=== PATIENT | female | born 1970 | race American Indian/Alaskan Native ===

== ENCOUNTER 2022-02-06 01:48 | Emergency (ER) | payer MEDICAID, OTHER ==
[2022-02-06] MEDS ORDERED: predniSONE 20 MG Tab PO ONE (01:49)
[2022-02-06] MEDS ORDERED: Albuterol/Ipratropium 3.0-0.5 MG/3 ML Neb Soln INH ONE (01:49)
[2022-02-06 02:28] VITALS: BP 131/69; PULSE 112
[2022-02-06 03:05] LABS: CORONAVIRUS COVID-19 NAA NEGATIVE (NEGATIVE)
[2022-02-06] MEDS ORDERED: Albuterol/Ipratropium 3.0-0.5 MG/3 ML Neb Soln NEB ONE (03:25)
[2022-02-06] MEDS ORDERED: methylPREDNISolone Sodium Succinate 125 MG/2 ML SDV IM ONE (03:25)
[2022-02-06] MEDS ORDERED: predniSONE 20 MG Tab ONE (05:07)
[2022-02-06] MEDS ORDERED: Albuterol/Ipratropium 3.0-0.5 MG/3 ML Neb Soln ONE (05:08)
== END 2022-02-06 05:37 | disposition home or self-care (01) ==
LOC: DL.ED 01:48
DX: J45.901 Unspecified asthma with (acute) exacerbation (principal); K21.9 Gastro-esophageal reflux disease without esophagitis; E66.9 Obesity, unspecified; Z68.34 Body mass index [BMI] 34.0-34.9, adult; Z72.0 Tobacco use; Z88.1 Allergy status to other antibiotic agents; Z79.899 Other long term (current) drug therapy; Z20.822 Contact with and (suspected) exposure to COVID-19
CPT/HCPCS: 0240U; 94640; 96372; 99283; J2930; J7512; J7620-GY

== ENCOUNTER 2022-03-03 04:44 | Emergency (ER) | payer MEDICAID ==
[2022-03-03 05:06] VITALS: BP 121/56; PULSE 99
[2022-03-03] MEDS: Benzonatate 100 MG Cap PO ONE (05:20)
[2022-03-03] MEDS: Albuterol/Ipratropium 3.0-0.5 MG/3 ML Neb Soln NEB ONE (05:20)
[2022-03-03 05:24] LABS: CORONAVIRUS COVID-19 NAA NEGATIVE (NEGATIVE); RESPIRATORY SYNCYTIAL VIR NAA NEGATIVE (NEGATIVE)
== END 2022-03-03 06:52 | disposition home or self-care (01) ==
LOC: DL.ED 04:44
DX: J45.41 Moderate persistent asthma with (acute) exacerbation (principal); E66.9 Obesity, unspecified; Z68.35 Body mass index [BMI] 35.0-35.9, adult; Z88.1 Allergy status to other antibiotic agents; Z79.899 Other long term (current) drug therapy; Z90.49 Acquired absence of other specified parts of digestive tract; Z20.822 Contact with and (suspected) exposure to COVID-19
CPT/HCPCS: 0241U; 99284; A9270; J7620-GY

== ENCOUNTER 2022-10-22 16:53 | Emergency (ER) | payer MEDICAID ==
[2022-10-22] MEDS ORDERED: Bacitracin Oint 1 GM U/D Packet TOP ONE (17:12)
[2022-10-22 17:55] VITALS: BP 127/94; PULSE 89
== END 2022-10-22 17:38 | disposition home or self-care (01) ==
LOC: DL.ED 16:53
DX: S06.0X1A Concussion with loss of consciousness of 30 minutes or less, initial encounter (principal); S01.01XA Laceration without foreign body of scalp, initial encounter; J45.909 Unspecified asthma, uncomplicated; K21.9 Gastro-esophageal reflux disease without esophagitis; E66.9 Obesity, unspecified; Z68.30 Body mass index [BMI] 30.0-30.9, adult; Z88.1 Allergy status to other antibiotic agents; Z79.899 Other long term (current) drug therapy; Y04.2XXA Assault by strike against or bumped into by another person, initial encounter
CPT/HCPCS: 99283; 99284; A9270-GY

== ENCOUNTER 2022-10-29 09:01 | Emergency (ER) | payer MEDICAID ==
[2022-10-29 09:18] LABS: BASOPHILS PERCENT AUTO 0.9 % (0.0-1.0); EOSINOPHILS PERCENT AUTO 5.1 % (1.0-3.0); HEMATOCRIT 42.5 % (37.0-47.0); HEMOGLOBIN 13.7 g/dL (12.0-16.0); LYMPHOCYTES PERCENT AUTO 49.9 % (20.5-50.1); MEAN CORPUSCULAR HEMOGLOBIN 33.2 pg (27.0-34.0); MEAN CORPUSCULAR HGB CONC 32.2 g/dL (33.0-35.0); MEAN CORPUSCULAR VOLUME 102.9 fL (80-100); MONOCYTES PERCENT AUTO 10.8 % (2-8); NEUTROPHILS PERCENT AUTO 33.3 % (42.2-75.2); PLATELET COUNT,PLT 252 10^3/uL (150-450); RED BLOOD CELL COUNT 4.13 10^6/uL (4.2-5.4); WHITE BLOOD CELL COUNT,WBC 6.9 10^3/uL (5.0-10.0)
[2022-10-29 09:22] LABS: APPEARANCE,URINE CLEAR (CLEAR); BILIRUBIN,URINE NEGATIVE (NEGATIVE); COLOR,URINE YELLOW (YELLOW); GLUCOSE,URINE NEGATIVE (NEGATIVE); KETONES,URINE NEGATIVE (NEGATIVE); LEUKOCYTE ESTERASE,URINE NEGATIVE (NEGATIVE); NITRITE,URINE NEGATIVE (NEGATIVE); OCCULT BLOOD,URINE TRACE-INTACT (NEGATIVE); PROTEIN,URINE NEGATIVE (NEGATIVE)
[2022-10-29 09:30] LABS: AMORPHOUS SEDIMENT,URINE RARE /HPF (NOT SEEN); BACTERIA,URINE RARE /HPF (0-FEW/HPF); EPITHELIAL CELLS,URINE FEW /HPF (NOT SEEN); MUCUS,URINE MODERATE /LPF (NOT SEEN); RBC,URINE 0-5 /HPF (0-5); WBC,URINE 0-5 /HPF (0-5/HPF)
[2022-10-29 09:37] LABS: ACETAMINOPHEN 19 ug/mL (10-30 (Therapeutic)); ALANINE AMINOTRANSFERASE,ALT 241 U/L (14-59); ALBUMIN 3.1 g/dL (3.4-5.0); ALKALINE PHOSPHATASE 154 U/L (46-116); ANION GAP 14.3 mEq/L (7-13); ASPARTATE AMNIOTRANSFERASE,AST 401 U/L (15-37); BILIRUBIN TOTAL 0.3 mg/dL (0.2-1.0); BLOOD UREA NITROGEN,BUN 8 mg/dL (7-18); BUN/CREATININE RATIO 11.1 (No establ ref range); CARBON DIOXIDE,CO2 26 mmol/L (21-32); CHLORIDE,CL 109 mmol/L (98-107); CREATININE 0.72 mg/dL (0.55-1.02); ETHANOL BLOOD MEDICAL 177 mg/dL (0); GLUCOSE RANDOM 122 mg/dL (70-99); POTASSIUM,K 3.3 mmol/L (3.5-5.1); PROTEIN TOTAL,TP 7.5 g/dL (6.4-8.2); SODIUM,NA 146 mmol/L (136-145)
[2022-10-29 09:38] LABS: ESTIMATED GFR 100 mL/min (>=60)
[2022-10-29 09:43] LABS: LACTIC ACID 1.8 mmol/L (0.4-2.0)
[2022-10-29 09:44] LABS: METHAMPHETAMINES,URINE POSITIVE (NEGATIVE)
[2022-10-29 09:45] LABS: AMPHETAMINES,URINE POSITIVE (NEGATIVE); BARBITURATES,URINE NEGATIVE (NEGATIVE); BENZODIAZEPINE,URINE NEGATIVE (NEGATIVE); MDMA (ECSTASY), URINE NEGATIVE (NEGATIVE); METHADONE,URINE POSITIVE (NEGATIVE); OPIATES,URINE NEGATIVE (NEGATIVE); OXYCODONE,URINE NEGATIVE (NEGATIVE); PHENCYCLIDINE,URINE NEGATIVE (NEGATIVE); TCA,URINE POSITIVE (NEGATIVE)
[2022-10-29 12:48] LABS: A/G RATIO 0.74; ALBUMIN 3.1 g/dL (3.4-5.0); ANION GAP 15.6 mEq/L (7-13); BILIRUBIN TOTAL 0.3 mg/dL (0.2-1.0); BUN/CREATININE RATIO 10.3 (No establ ref range); CALCIUM 7.9 mg/dL (8.5-10.1); CREATININE 0.68 mg/dL (0.55-1.02); EST CRCL DRUG DOSING (CG) 86.09 mL/min; POTASSIUM,K 3.6 mmol/L (3.5-5.1); PROTEIN TOTAL,TP 7.3 g/dL (6.4-8.2)
== END 2022-10-29 15:22 | disposition home or self-care (01) ==
LOC: DL.ED 09:01
DX: T50.991A Poisoning by other drugs, medicaments and biological substances, accidental (unintentional), initial encounter (principal); F32.A Depression, unspecified; F10.10 Alcohol abuse, uncomplicated; Y90.0 Blood alcohol level of less than 20 mg/100 ml
CPT/HCPCS: 36415; 80053; 80143; 80179; 80305-QW; 80307; 81001; 82550; 82947; 83605; 83735; 85025; 93005; 99285

== ENCOUNTER 2023-01-27 10:50 | Inpatient (IN) | payer MEDICAID ==
[2023-01-27 11:33] LABS: BASOPHILS PERCENT AUTO 0.2 % (0.0-1.0); EOSINOPHILS PERCENT AUTO 0.9 % (1.0-3.0); HEMOGLOBIN 12.8 g/dL (12.0-16.0); LYMPHOCYTES PERCENT AUTO 18.3 % (20.5-50.1); MEAN CORPUSCULAR HEMOGLOBIN 34.3 pg (27.0-34.0); MEAN CORPUSCULAR HGB CONC 34.6 g/dL (33.0-35.0); MEAN CORPUSCULAR VOLUME 99.2 fL (80-100); MONOCYTES PERCENT AUTO 11.3 % (2-8); NEUTROPHILS PERCENT AUTO 69.3 % (42.2-75.2); PLATELET COUNT,PLT 169 10^3/uL (150-450); RED BLOOD CELL COUNT 3.73 10^6/uL (4.2-5.4); WHITE BLOOD CELL COUNT,WBC 16.3 10^3/uL (5.0-10.0)
[2023-01-27] MEDS ORDERED: Sodium Chloride 0.9% 1,000 ML IV ONE (11:33)
[2023-01-27 11:42] LABS: ALANINE AMINOTRANSFERASE,ALT 56 U/L (14-59); ALBUMIN 2.5 g/dL (3.4-5.0); ALKALINE PHOSPHATASE 132 U/L (46-116); AMYLASE 40 U/L (25-115); ANION GAP 12.4 mEq/L (7-13); ASPARTATE AMNIOTRANSFERASE,AST 83 U/L (15-37); BILIRUBIN TOTAL 0.9 mg/dL (0.2-1.0); BLOOD UREA NITROGEN,BUN 15 mg/dL (7-18); BUN/CREATININE RATIO 14.4 (No establ ref range); CALCIUM 8.1 mg/dL (8.5-10.1); CARBON DIOXIDE,CO2 23 mmol/L (21-32); CHLORIDE,CL 105 mmol/L (98-107); CREATININE 1.04 mg/dL (0.55-1.02); EST CRCL DRUG DOSING (CG) 54.02 mL/min; GLUCOSE RANDOM 99 mg/dL (70-99); LIPASE 31 U/L (16-77); POTASSIUM,K 3.4 mmol/L (3.5-5.1); PROTEIN TOTAL,TP 7.5 g/dL (6.4-8.2); SODIUM,NA 137 mmol/L (136-145)
[2023-01-27] MEDS ORDERED: Sodium Chloride 0.9% 1,000 ML IV SCH (11:45)
[2023-01-27 11:46] LABS: ESTIMATED GFR 64 mL/min (>=60); ETHANOL BLOOD MEDICAL < 3 mg/dL (0)
[2023-01-27] MEDS ORDERED: Iopamidol 612 MG/ML 100 ML Bottle IVPUSH ONE (11:50)
[2023-01-27] MEDS: Sodium Chloride 0.9% 10 ML Syringe FLUSH PRN (11:53)
[2023-01-27 12:05] LABS: LACTIC ACID 1.1 mmol/L (0.4-2.0)
[2023-01-27] MEDS ORDERED: Ketorolac 30 MG/ML SDV IVPUSH ONE (12:10)
[2023-01-27 12:13] LABS: CORONAVIRUS COVID-19 NAA NEGATIVE (NEGATIVE); INFLUENZA A NAA NEGATIVE (NEGATIVE); INFLUENZA B NAA NEGATIVE (NEGATIVE); RESPIRATORY SYNCYTIAL VIR NAA NEGATIVE (NEGATIVE)
[2023-01-27 12:40] LABS: PROTHROMBIN TIME 10.3 SEC (9.0-12.0); PTT,PARTIAL THROMBOPLSTIN TIME 27.4 SEC (22.0-34.0)
[2023-01-27] MEDS ORDERED: Piperacillin/Tazobactam 3.375 GM in Sodium Chloride 0.9% 100 ML IV ONE (12:49)
[2023-01-27 12:57] LABS: APPEARANCE,URINE TURBID (CLEAR); BILIRUBIN,URINE NEGATIVE (NEGATIVE); COLOR,URINE DARK YELLOW (YELLOW); GLUCOSE,URINE NEGATIVE (NEGATIVE); KETONES,URINE NEGATIVE (NEGATIVE); LEUKOCYTE ESTERASE,URINE SMALL (NEGATIVE); NITRITE,URINE NEGATIVE (NEGATIVE); OCCULT BLOOD,URINE SMALL (NEGATIVE); PROTEIN,URINE 100 (NEGATIVE)
[2023-01-27] MEDS ORDERED: Vancomycin 2 GM in Sodium Chloride 0.9% 500 ML IV ONE (13:00)
[2023-01-27 13:01] LABS: AMPHETAMINES,URINE POSITIVE (NEGATIVE); BARBITURATES,URINE NEGATIVE (NEGATIVE); BENZODIAZEPINE,URINE NEGATIVE (NEGATIVE); MDMA (ECSTASY), URINE NEGATIVE (NEGATIVE); METHADONE,URINE NEGATIVE (NEGATIVE); METHAMPHETAMINES,URINE POSITIVE (NEGATIVE); OPIATES,URINE NEGATIVE (NEGATIVE); OXYCODONE,URINE NEGATIVE (NEGATIVE); PHENCYCLIDINE,URINE NEGATIVE (NEGATIVE); TCA,URINE NEGATIVE (NEGATIVE)
[2023-01-27 13:08] LABS: BACTERIA,URINE MODERATE /HPF (0-FEW/HPF); EPITHELIAL CELLS,URINE MANY /HPF (NOT SEEN); MUCUS,URINE FEW /LPF (NOT SEEN)
[2023-01-27] MEDS ORDERED: Ondansetron 4 MG/2 ML SDV IVPUSH PRN (14:04)
[2023-01-27] MEDS ORDERED: HYDROmorphone 0.5 MG/0.5 ML Syringe IVPUSH PRN (14:04)
[2023-01-27] MEDS ORDERED: Polyethylene Glycol 3350 Powder 17 GM Packet PO PRN (14:04)
[2023-01-27] MEDS ORDERED: Albuterol/Ipratropium 3.0-0.5 MG/3 ML Neb Soln NEB PRN (14:04)
[2023-01-27] MEDS ORDERED: Magnesium Hydroxide 400 MG/5 ML Susp 30 ML Cup PO PRN (14:04)
[2023-01-27] MEDS ORDERED: Sennosides/Docusate Sodium 50-8.6 MG Tab PO PRN (14:04)
[2023-01-27] MEDS ORDERED: Acetaminophen/Butalbital/Caffeine 325-50-40 MG Tab PO ONE (14:39)
[2023-01-27] MEDS ORDERED: Nicotine 21 MG/24 Hr Patch TRDERM ONE (14:41)
[2023-01-27] MEDS: Sodium Chloride 0.9% 1,000 ML IV SCH ×2 (15:09→22:05)
[2023-01-27] MEDS ORDERED: Glucagon,Human Recombinant 1 MG Vial IM PRN (15:11)
[2023-01-27] MEDS ORDERED: 50% Dextrose in Water 50 ML Syringe IVPUSH PRN (15:11)
[2023-01-27] MEDS ORDERED: Midodrine 5 MG Tab PO PRN (15:11)
[2023-01-27] MEDS ORDERED: Ondansetron 4 MG Tab.DIS PO PRN (16:11)
[2023-01-27] MEDS ORDERED: diphenhydrAMINE 50 MG/ML SDV IVPUSH ONE (16:14)
[2023-01-27] MEDS ORDERED: hydrOXYzine HCl 25 MG Tab PO PRN (16:31)
[2023-01-27] MEDS: Piperacillin/Tazobactam 3.375 GM in Sodium Chloride 0.9% 100 ML IV SCH (16:59)
[2023-01-27] MEDS ORDERED: Potassium Chloride 10 MEQ Tab.ER PO ONE (17:00)
[2023-01-27] MEDS: Insulin Lispro 100 Units/ML 3 ML Vial SUBCUT SCH (17:02)
[2023-01-27] MEDS ORDERED: Metoclopramide 10 MG/2 ML SDV IVPUSH ONE (20:52)
[2023-01-27] MEDS ORDERED: Ketorolac 30 MG/ML SDV IM ONE (20:52)
[2023-01-27] MEDS ORDERED: SUMAtriptan 6 MG/0.5 ML SDV SUBCUT ONE (20:54)
[2023-01-27] MEDS ORDERED: LORazepam 2 MG/ML SDV IVPUSH ONE ×2 (20:54)
[2023-01-27] MEDS ORDERED: Flumazenil 0.1 MG/ML 5 ML MDV IVPUSH PRN (20:54)
[2023-01-27] MEDS ORDERED: Non-Formulary Medication 1 Each (Prazosin Hcl [Prazosin] 1 MG Capsule) PO SCH (21:00)
[2023-01-27] MEDS ORDERED: Non-Formulary Medication 1 Each (Fluticasone Propion/Salmeterol [Fluticasone-Salmeterol 25 INH SCH (21:00)
[2023-01-27] MEDS ORDERED: Lactated Ringers 1,000 ML IV ONE (21:03)
[2023-01-27] MEDS: QUEtiapine 25 MG Tab PO SCH (21:53)
[2023-01-27] MEDS: Montelukast 10 MG Tab PO SCH (21:53)
[2023-01-27] MEDS: Saccharomyces Boulardii (Probiotic) 250 MG Cap PO SCH (21:53)
[2023-01-27] MEDS: Formoterol/Mometasone 200-5 MCG 8.8 GM Inhaler IH SCH (21:59)
[2023-01-27] MEDS: Fluticasone NASAL Spray 16 GM Bottle NASBOTH SCH (21:59)
[2023-01-28] MEDS: Piperacillin/Tazobactam 3.375 GM in Sodium Chloride 0.9% 100 ML IV SCH ×4 (00:10→17:04)
[2023-01-28] MEDS ORDERED: Sodium Chloride 0.9% 1,000 ML IV SCH (01:15)
[2023-01-28] MEDS: Pantoprazole 40 MG Tab.CR PO SCH (05:21)
[2023-01-28 06:15] LABS: BASOPHILS PERCENT AUTO 0.3 % (0.0-1.0); EOSINOPHILS PERCENT AUTO 1.5 % (1.0-3.0); HEMATOCRIT 33.7 % (37.0-47.0); MEAN CORPUSCULAR HEMOGLOBIN 33.2 pg (27.0-34.0); MEAN CORPUSCULAR HGB CONC 32.6 g/dL (33.0-35.0); MEAN CORPUSCULAR VOLUME 101.8 fL (80-100); MONOCYTES PERCENT AUTO 11.7 % (2-8); NEUTROPHILS PERCENT AUTO 63.5 % (42.2-75.2); PLATELET COUNT,PLT 149 10^3/uL (150-450); RED BLOOD CELL COUNT 3.31 10^6/uL (4.2-5.4); WHITE BLOOD CELL COUNT,WBC 10.2 10^3/uL (5.0-10.0)
[2023-01-28] MEDS: Formoterol/Mometasone 200-5 MCG 8.8 GM Inhaler IH SCH ×4 (06:16→17:29)
[2023-01-28 06:33] LABS: A/G RATIO 0.48; BILIRUBIN TOTAL 0.7 mg/dL (0.2-1.0); BUN/CREATININE RATIO 14.8 (No establ ref range); C-REACTIVE PROTEIN 11.05 ng/dL (<=0.50); CALCIUM 7.3 mg/dL (8.5-10.1); CREATININE 0.88 mg/dL (0.55-1.02); EST CRCL DRUG DOSING (CG) 63.84 mL/min; MAGNESIUM 1.7 mg/dL (1.8-2.4); PROTEIN TOTAL,TP 6.2 g/dL (6.4-8.2)
[2023-01-28] MEDS: Thiamine 100 MG Tab PO SCH (08:14)
[2023-01-28] MEDS: buPROPion 150 MG Tab.SR PO SCH (08:14)
[2023-01-28] MEDS: Saccharomyces Boulardii (Probiotic) 250 MG Cap PO SCH ×2 (08:14→20:09)
[2023-01-28] MEDS: Nicotine 21 MG/24 Hr Patch TRDERM SCH (08:17)
[2023-01-28] MEDS ORDERED: Magnesium Sulfate/Water 2 GM in Premix Bag 1 BAG IV ONE (08:23)
[2023-01-28] MEDS: Acetaminophen 325 MG Tab PO PRN ×2 (08:29→20:07)
[2023-01-28] MEDS: LORazepam 2 MG/ML SDV IV PRN ×3 (08:30→17:14)
[2023-01-28] MEDS: Insulin Lispro 100 Units/ML 3 ML Vial SUBCUT SCH ×3 (08:35→17:17)
[2023-01-28] MEDS: Fluticasone NASAL Spray 16 GM Bottle NASBOTH SCH ×2 (10:57→20:11)
[2023-01-28] MEDS: Acetaminophen/Butalbital/Caffeine 325-50-40 MG Tab PO PRN (17:09)
[2023-01-28] MEDS: Montelukast 10 MG Tab PO SCH (20:09)
[2023-01-28] MEDS: QUEtiapine 25 MG Tab PO SCH (20:09)
[2023-01-28] MEDS: Sodium Chloride 0.9% 10 ML Syringe FLUSH PRN (20:14)
[2023-01-29] MEDS: Sodium Chloride 0.9% 10 ML Syringe FLUSH PRN ×4 (00:15→21:28)
[2023-01-29] MEDS: Piperacillin/Tazobactam 3.375 GM in Sodium Chloride 0.9% 100 ML IV SCH ×5 (00:16→23:19)
[2023-01-29] MEDS: Acetaminophen/Butalbital/Caffeine 325-50-40 MG Tab PO PRN (03:06)
[2023-01-29] MEDS: Pantoprazole 40 MG Tab.CR PO SCH (05:26)
[2023-01-29] MEDS: Formoterol/Mometasone 200-5 MCG 8.8 GM Inhaler IH SCH ×2 (05:33→17:11)
[2023-01-29] MEDS: Acetaminophen/oxyCODONE 325-5 MG Tab PO PRN (05:41)
[2023-01-29 06:37] LABS: BASOPHILS PERCENT AUTO 0.4 % (0.0-1.0); EOSINOPHILS PERCENT AUTO 2.8 % (1.0-3.0); HEMATOCRIT 33.9 % (37.0-47.0); LYMPHOCYTES PERCENT AUTO 28.8 % (20.5-50.1); MEAN CORPUSCULAR HEMOGLOBIN 32.9 pg (27.0-34.0); MEAN CORPUSCULAR HGB CONC 32.4 g/dL (33.0-35.0); MEAN CORPUSCULAR VOLUME 101.5 fL (80-100); MONOCYTES PERCENT AUTO 12.7 % (2-8); NEUTROPHILS PERCENT AUTO 55.3 % (42.2-75.2); PLATELET COUNT,PLT 190 10^3/uL (150-450); RED BLOOD CELL COUNT 3.34 10^6/uL (4.2-5.4); WHITE BLOOD CELL COUNT,WBC 9.4 10^3/uL (5.0-10.0)
[2023-01-29 08:00] LABS: ALBUMIN 2.2 g/dL (3.4-5.0); ANION GAP 13.5 mEq/L (7-13); BILIRUBIN TOTAL 0.6 mg/dL (0.2-1.0); BUN/CREATININE RATIO 8.5 (No establ ref range); C-REACTIVE PROTEIN 6.65 ng/dL (<=0.50); CALCIUM 7.9 mg/dL (8.5-10.1); CREATININE 0.94 mg/dL (0.55-1.02); EST CRCL DRUG DOSING (CG) 59.77 mL/min; POTASSIUM,K 3.5 mmol/L (3.5-5.1); PROTEIN TOTAL,TP 6.4 g/dL (6.4-8.2)
[2023-01-29 08:01] LABS: A/G RATIO 0.52
[2023-01-29] MEDS: Saccharomyces Boulardii (Probiotic) 250 MG Cap PO SCH ×2 (09:13→21:11)
[2023-01-29] MEDS: Thiamine 100 MG Tab PO SCH (09:14)
[2023-01-29] MEDS: LORazepam 2 MG/ML SDV IV PRN ×2 (09:15→10:16)
[2023-01-29] MEDS: buPROPion 150 MG Tab.SR PO SCH (09:15)
[2023-01-29] MEDS: Fluticasone NASAL Spray 16 GM Bottle NASBOTH SCH ×2 (09:17→21:12)
[2023-01-29] MEDS: Insulin Lispro 100 Units/ML 3 ML Vial SUBCUT SCH ×3 (09:18→18:36)
[2023-01-29] MEDS: Nicotine 21 MG/24 Hr Patch TRDERM SCH (09:19)
[2023-01-29] MEDS ORDERED: SUMAtriptan 6 MG/0.5 ML SDV SUBCUT ONE (12:07)
[2023-01-29] MEDS: Acetaminophen 325 MG Tab PO PRN (14:26)
[2023-01-29] MEDS ORDERED: Ibuprofen 400 MG Tab PO PRN (16:39)
[2023-01-29] MEDS: QUEtiapine 25 MG Tab PO SCH (21:11)
[2023-01-29] MEDS: Montelukast 10 MG Tab PO SCH (21:11)
[2023-01-30] MEDS: Acetaminophen/oxyCODONE 325-5 MG Tab PO PRN ×2 (00:14→04:06)
[2023-01-30] MEDS: Sodium Chloride 0.9% 10 ML Syringe FLUSH PRN (05:34)
[2023-01-30] MEDS: Pantoprazole 40 MG Tab.CR PO SCH (05:34)
[2023-01-30] MEDS: Piperacillin/Tazobactam 3.375 GM in Sodium Chloride 0.9% 100 ML IV SCH ×2 (05:34→12:26)
[2023-01-30 06:10] LABS: BASOPHILS PERCENT AUTO 0.8 % (0.0-1.0); EOSINOPHILS PERCENT AUTO 4.8 % (1.0-3.0); HEMATOCRIT 35.6 % (37.0-47.0); HEMOGLOBIN 11.6 g/dL (12.0-16.0); LYMPHOCYTES PERCENT AUTO 29.5 % (20.5-50.1); MEAN CORPUSCULAR HEMOGLOBIN 32.9 pg (27.0-34.0); MEAN CORPUSCULAR HGB CONC 32.6 g/dL (33.0-35.0); MEAN CORPUSCULAR VOLUME 100.8 fL (80-100); MONOCYTES PERCENT AUTO 13.5 % (2-8); NEUTROPHILS PERCENT AUTO 51.4 % (42.2-75.2); PLATELET COUNT,PLT 212 10^3/uL (150-450); RED BLOOD CELL COUNT 3.53 10^6/uL (4.2-5.4); WHITE BLOOD CELL COUNT,WBC 9.2 10^3/uL (5.0-10.0)
[2023-01-30 06:30] LABS: ALBUMIN 2.2 g/dL (3.4-5.0); ANION GAP 11.5 mEq/L (7-13); BILIRUBIN TOTAL 0.4 mg/dL (0.2-1.0); C-REACTIVE PROTEIN 5.19 ng/dL (<=0.50); CALCIUM 8.2 mg/dL (8.5-10.1); CREATININE 0.9 mg/dL (0.55-1.02); EST CRCL DRUG DOSING (CG) 62.42 mL/min; MAGNESIUM 1.8 mg/dL (1.8-2.4); POTASSIUM,K 3.5 mmol/L (3.5-5.1); PROTEIN TOTAL,TP 6.9 g/dL (6.4-8.2)
[2023-01-30] MEDS: Formoterol/Mometasone 200-5 MCG 8.8 GM Inhaler IH SCH (06:31)
[2023-01-30 06:37] LABS: A/G RATIO 0.47
[2023-01-30] MEDS: Insulin Lispro 100 Units/ML 3 ML Vial SUBCUT SCH ×2 (08:22→12:25)
[2023-01-30] MEDS: Thiamine 100 MG Tab PO SCH (08:36)
[2023-01-30] MEDS: buPROPion 150 MG Tab.SR PO SCH (08:36)
[2023-01-30] MEDS: Saccharomyces Boulardii (Probiotic) 250 MG Cap PO SCH (08:36)
[2023-01-30] MEDS: Nicotine 21 MG/24 Hr Patch TRDERM SCH (08:37)
[2023-01-30] MEDS: Fluticasone NASAL Spray 16 GM Bottle NASBOTH SCH (08:50)
[2023-01-30] MEDS ORDERED: FLU (Fluarix Quad) QS2023-24(6MOS UP)/PF 60 MCG/0.5 ML Syringe IM ONE (09:00)
[2023-01-30] MEDS: Acetaminophen 325 MG Tab PO PRN (09:37)
[2023-01-30 12:04] VITALS: BP 115/73; PULSE 83
== END 2023-01-30 12:50 | disposition home or self-care (01) | DRG 872 ==
LOC: DL.ED 10:50 → DL.MS 13:33 → UNDOADMIN 13:33 → DL.ED 13:46 → DL.MS 14:00
PROVIDERS: ADMIT Internal Medicine; ATTEND Internal Medicine
DX: A41.9 Sepsis, unspecified organism (principal); N12 Tubulo-interstitial nephritis, not specified as acute or chronic; N17.9 Acute kidney failure, unspecified; J45.909 Unspecified asthma, uncomplicated; K21.9 Gastro-esophageal reflux disease without esophagitis; E11.9 Type 2 diabetes mellitus without complications; F41.9 Anxiety disorder, unspecified; F32.A Depression, unspecified; E87.6 Hypokalemia; F17.210 Nicotine dependence, cigarettes, uncomplicated; G44.89 Other headache syndrome; E66.9 Obesity, unspecified; G43.909 Migraine, unspecified, not intractable, without status migrainosus; E88.09 Other disorders of plasma-protein metabolism, not elsewhere classified; F19.10 Other psychoactive substance abuse, uncomplicated; Z68.34 Body mass index [BMI] 34.0-34.9, adult; Z79.52 Long term (current) use of systemic steroids; Z79.4 Long term (current) use of insulin; Z79.1 Long term (current) use of non-steroidal anti-inflammatories (NSAID); Z88.1 Allergy status to other antibiotic agents; Z90.89 Acquired absence of other organs; Z90.49 Acquired absence of other specified parts of digestive tract; Z11.52 Encounter for screening for COVID-19
CPT/HCPCS: 0241U; 36415; 70450; 70551; 71045; 74177; 80053; 80202; 80305-QW; 80307; 81001; 82150; 82947; 83605; 83690; 83735; 85025; 85610; 85730; 86140; 87040; 87086; 90686; 94010; 94060; 94667; 94668; 96361; 96365; 96368; 96375; 99285-25; A9270-GY; G0008; J1200; J1815-GY; J1885; J2060; J2543; J2765; J3030; J3370; J3475; J3490; J7030; J7040; J7050; J7120; Q9967

== ENCOUNTER 2023-03-21 20:30 | Emergency (ER) | payer MEDICAID ==
[2023-03-21] MEDS ORDERED: Sodium Chloride 0.9% 1,000 ML IV ONE ×2 (20:39→21:23)
[2023-03-21] MEDS ORDERED: Sodium Chloride 0.9% 10 ML Syringe FLUSH PRN (20:39)
[2023-03-21 20:58] LABS: BASOPHILS PERCENT AUTO 0.5 % (0.0-1.0); EOSINOPHILS PERCENT AUTO 0.1 % (1.0-3.0); HEMATOCRIT 37.8 % (37.0-47.0); HEMOGLOBIN 12.4 g/dL (12.0-16.0); MEAN CORPUSCULAR HEMOGLOBIN 33.2 pg (27.0-34.0); MEAN CORPUSCULAR HGB CONC 32.8 g/dL (33.0-35.0); MEAN CORPUSCULAR VOLUME 101.1 fL (80-100); MONOCYTES PERCENT AUTO 9.7 % (2-8); NEUTROPHILS PERCENT AUTO 74.7 % (42.2-75.2); PLATELET COUNT,PLT 179 10^3/uL (150-450); RED BLOOD CELL COUNT 3.74 10^6/uL (4.2-5.4); WHITE BLOOD CELL COUNT,WBC 7.9 10^3/uL (5.0-10.0)
[2023-03-21 21:22] LABS: LACTIC ACID 1.5 mmol/L (0.4-2.0)
[2023-03-21] MEDS ORDERED: Ondansetron 4 MG/2 ML SDV IVPUSH ONE (21:23)
[2023-03-21] MEDS ORDERED: Ketorolac 30 MG/ML SDV IVPUSH ONE (21:23)
[2023-03-21 21:28] LABS: PROTHROMBIN TIME 10.3 SEC (9.0-12.0); PTT,PARTIAL THROMBOPLSTIN TIME 26.6 SEC (22.0-34.0)
[2023-03-21 21:29] LABS: A/G RATIO 0.67; ALANINE AMINOTRANSFERASE,ALT 340 U/L (14-59); ALBUMIN 3.1 g/dL (3.4-5.0); ALKALINE PHOSPHATASE 144 U/L (46-116); AMYLASE 50 U/L (25-115); ANION GAP 14.7 mEq/L (7-13); ASPARTATE AMNIOTRANSFERASE,AST 702 U/L (15-37); BILIRUBIN TOTAL 0.8 mg/dL (0.2-1.0); BLOOD UREA NITROGEN,BUN 9 mg/dL (7-18); BUN/CREATININE RATIO 12.3 (No establ ref range); C-REACTIVE PROTEIN 3.58 ng/dL (<=0.50); CALCIUM 8.3 mg/dL (8.5-10.1); CARBON DIOXIDE,CO2 24 mmol/L (21-32); CHLORIDE,CL 98 mmol/L (98-107); CREATININE 0.73 mg/dL (0.55-1.02); EST CRCL DRUG DOSING (CG) 76.96 mL/min; ESTIMATED GFR 98 mL/min (>=60); ETHANOL BLOOD MEDICAL < 3 mg/dL (0); GLUCOSE RANDOM 124 mg/dL (70-99); LIPASE 33 U/L (16-77); MAGNESIUM 1.7 mg/dL (1.8-2.4); POTASSIUM,K 3.7 mmol/L (3.5-5.1); PROTEIN TOTAL,TP 7.7 g/dL (6.4-8.2); SODIUM,NA 133 mmol/L (136-145)
[2023-03-21 21:39] LABS: CORONAVIRUS COVID-19 NAA NEGATIVE (NEGATIVE); INFLUENZA A NAA POSITIVE (NEGATIVE); INFLUENZA B NAA NEGATIVE (NEGATIVE); RESPIRATORY SYNCYTIAL VIR NAA NEGATIVE (NEGATIVE)
[2023-03-21] MEDS ORDERED: Take Home: Oseltamivir 75 MG Cap, 2 Cap Pack PO ONE (22:30)
[2023-03-21] MEDS ORDERED: Oseltamivir 75 MG Cap PO ONE (22:30)
[2023-03-21 22:37] LABS: APPEARANCE,URINE CLEAR (CLEAR); BILIRUBIN,URINE NEGATIVE (NEGATIVE); COLOR,URINE YELLOW (YELLOW); GLUCOSE,URINE NEGATIVE (NEGATIVE); KETONES,URINE NEGATIVE (NEGATIVE); LEUKOCYTE ESTERASE,URINE NEGATIVE (NEGATIVE); NITRITE,URINE NEGATIVE (NEGATIVE); OCCULT BLOOD,URINE NEGATIVE (NEGATIVE); PROTEIN,URINE 30 (NEGATIVE)
[2023-03-21 22:42] LABS: AMPHETAMINES,URINE NEGATIVE (NEGATIVE); BARBITURATES,URINE NEGATIVE (NEGATIVE); BENZODIAZEPINE,URINE NEGATIVE (NEGATIVE); MDMA (ECSTASY), URINE NEGATIVE (NEGATIVE); METHADONE,URINE NEGATIVE (NEGATIVE); METHAMPHETAMINES,URINE NEGATIVE (NEGATIVE); OPIATES,URINE NEGATIVE (NEGATIVE); OXYCODONE,URINE NEGATIVE (NEGATIVE); PHENCYCLIDINE,URINE NEGATIVE (NEGATIVE); TCA,URINE NEGATIVE (NEGATIVE)
[2023-03-21 23:13] VITALS: BP 110/69; PULSE 90
[2023-03-21 23:15] LABS: WBC,URINE 0-5 /HPF (0-5/HPF)
[2023-03-21 23:16] LABS: BACTERIA,URINE FEW /HPF (0-FEW/HPF); EPITHELIAL CELLS,URINE FEW /HPF (NOT SEEN); RBC,URINE 0-5 /HPF (0-5)
== END 2023-03-21 23:08 | disposition home or self-care (01) ==
LOC: DL.ED 20:30
DX: J10.1 Influenza due to other identified influenza virus with other respiratory manifestations (principal); R94.5 Abnormal results of liver function studies; J45.909 Unspecified asthma, uncomplicated; K21.9 Gastro-esophageal reflux disease without esophagitis; E66.9 Obesity, unspecified; F17.210 Nicotine dependence, cigarettes, uncomplicated; Z79.899 Other long term (current) drug therapy; Z79.84 Long term (current) use of oral hypoglycemic drugs; Z90.49 Acquired absence of other specified parts of digestive tract; Z88.8 Allergy status to other drugs, medicaments and biological substances; Z68.35 Body mass index [BMI] 35.0-35.9, adult
CPT/HCPCS: 0241U; 36415; 71045; 80053; 80305-QW; 80307; 81001; 82150; 83605; 83690; 83735; 84145; 85025; 85610; 85730; 86140; 87040; 87081; 87430; 93005; 93010; 96361; 96374; 96375; 99284; 99285-25; A9270-GY; J1885; J2405; J3490; J7030

== ENCOUNTER 2024-08-06 22:55 | Emergency (ER) | payer MEDICAID ==
[2024-08-06] MEDS ORDERED: Sodium Chloride 0.9% 10 ML Syringe FLUSH PRN (23:12)
[2024-08-06 23:31] LABS: BASOPHILS PERCENT AUTO 0.4 % (0.0-1.0); EOSINOPHILS PERCENT AUTO 2.3 % (1.0-3.0); HEMATOCRIT 37.1 % (37.0-47.0); HEMOGLOBIN 12.1 g/dL (12.0-16.0); LYMPHOCYTES PERCENT AUTO 57.9 % (20.5-50.1); MEAN CORPUSCULAR HEMOGLOBIN 34.4 pg (27.0-34.0); MEAN CORPUSCULAR HGB CONC 32.6 g/dL (33.0-35.0); MEAN CORPUSCULAR VOLUME 105.4 fL (80-100); MONOCYTES PERCENT AUTO 8.3 % (2-8); NEUTROPHILS PERCENT AUTO 31.1 % (42.2-75.2); PLATELET COUNT,PLT 195 10^3/uL (150-450); RED BLOOD CELL COUNT 3.52 10^6/uL (4.2-5.4); WHITE BLOOD CELL COUNT,WBC 11.8 10^3/uL (5.0-10.0)
[2024-08-06 23:55] LABS: ALANINE AMINOTRANSFERASE,ALT 39 U/L (14-59); ALKALINE PHOSPHATASE 195 U/L (46-116); ASPARTATE AMNIOTRANSFERASE,AST 66 U/L (15-37); BILIRUBIN TOTAL 0.6 mg/dL (0.2-1.0); BLOOD UREA NITROGEN,BUN 17 mg/dL (7-18); BUN/CREATININE RATIO 14.3 (No establ ref range); CALCIUM 8.6 mg/dL (8.5-10.1); CARBON DIOXIDE,CO2 23 mmol/L (21-32); CREATININE 1.19 mg/dL (0.55-1.02); GLUCOSE RANDOM 227 mg/dL (70-99); POTASSIUM,K 3.9 mmol/L (3.5-5.1); PROTEIN TOTAL,TP 7.8 g/dL (6.4-8.2)
[2024-08-06 23:59] LABS: ANION GAP 17.9 mEq/L (7-13); CHLORIDE,CL 112 mmol/L (98-107); SODIUM,NA 149 mmol/L (136-145)
[2024-08-07 00:01] LABS: A/G RATIO 0.63; ESTIMATED GFR 54 mL/min (>=60)
[2024-08-07 02:19] VITALS: BP 122/65; PULSE 122
== END 2024-08-07 03:12 | disposition home or self-care (01) ==
LOC: DL.ED 22:55
DX: J45.41 Moderate persistent asthma with (acute) exacerbation (principal); J96.01 Acute respiratory failure with hypoxia; F17.200 Nicotine dependence, unspecified, uncomplicated; K21.9 Gastro-esophageal reflux disease without esophagitis; E11.9 Type 2 diabetes mellitus without complications; E66.9 Obesity, unspecified; Z79.899 Other long term (current) drug therapy
CPT/HCPCS: 36415; 71045; 80053; 83735; 85025; 93005; 93010; 99284; 99285

== ENCOUNTER 2024-08-13 16:43 | Emergency (ER) | payer SELFPAY ==
[2024-08-13 17:13] LABS: BASOPHILS PERCENT AUTO 0.5 % (0.0-1.0); EOSINOPHILS PERCENT AUTO 3.4 % (1.0-3.0); HEMOGLOBIN 11.4 g/dL (12.0-16.0); LYMPHOCYTES PERCENT AUTO 50.4 % (20.5-50.1); MEAN CORPUSCULAR HEMOGLOBIN 33.9 pg (27.0-34.0); MEAN CORPUSCULAR HGB CONC 32.6 g/dL (33.0-35.0); MEAN CORPUSCULAR VOLUME 104.2 fL (80-100); NEUTROPHILS PERCENT AUTO 35.7 % (42.2-75.2); PLATELET COUNT,PLT 153 10^3/uL (150-450); RED BLOOD CELL COUNT 3.36 10^6/uL (4.2-5.4); WHITE BLOOD CELL COUNT,WBC 10.4 10^3/uL (5.0-10.0)
[2024-08-13 17:32] LABS: A/G RATIO 0.69; ALBUMIN 3.1 g/dL (3.4-5.0); ANION GAP 14.8 mEq/L (7-13); BILIRUBIN TOTAL 0.6 mg/dL (0.2-1.0); BUN/CREATININE RATIO 10.3 (No establ ref range); CALCIUM 8.4 mg/dL (8.5-10.1); CREATININE 1.07 mg/dL (0.55-1.02); EST CRCL DRUG DOSING (CG) 54.08 mL/min; POTASSIUM,K 3.8 mmol/L (3.5-5.1); PROTEIN TOTAL,TP 7.6 g/dL (6.4-8.2)
[2024-08-13 18:22] VITALS: BP 113/61; PULSE 107
== END 2024-08-13 20:56 | disposition home or self-care (01) ==
LOC: DL.ED 16:43
DX: F10.129 Alcohol abuse with intoxication, unspecified (principal); J45.909 Unspecified asthma, uncomplicated; E11.9 Type 2 diabetes mellitus without complications; K21.9 Gastro-esophageal reflux disease without esophagitis; E66.9 Obesity, unspecified; R06.02 Shortness of breath; Z88.8 Allergy status to other drugs, medicaments and biological substances; Z79.899 Other long term (current) drug therapy; Z79.84 Long term (current) use of oral hypoglycemic drugs; Z90.49 Acquired absence of other specified parts of digestive tract
CPT/HCPCS: 36415; 71045; 80053; 80307; 85025; 99285